=== PATIENT | female | born 1995 | race American Indian/Alaskan Native ===

== ENCOUNTER 2021-03-02 10:41 | Emergency (ER) | payer OTHER, MEDICAID ==
[2021-03-02 10:47] VITALS: BP 122/67
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
== END 2021-03-02 11:44 | disposition home or self-care (01) ==
LOC: ED 10:41
DX: S29.012A Strain of muscle and tendon of back wall of thorax, initial encounter (principal); V87.7XXA Person injured in collision between other specified motor vehicles (traffic), initial encounter; Y93.89 Activity, other specified; Y92.488 Other paved roadways as the place of occurrence of the external cause; Y99.8 Other external cause status
CPT/HCPCS: 99281